=== PATIENT | female | born 1990 | race Two or more races ===

== ENCOUNTER 2020-11-13 08:37 | Day surgery (SDC) | payer OTHER | END 2020-11-13 16:45 | disposition home or self-care (01) | LOC: CIR.AMB 08:37 | PROVIDERS: ATTEND Obstetrics & Gynecology | DX: O02.1 Missed abortion (principal); Z20.822 Contact with and (suspected) exposure to COVID-19 ==

== ENCOUNTER 2021-09-18 09:55 | Outpatient (CLI) | payer OTHER | END 2021-09-18 10:07 | disposition home or self-care (01) | LOC: NST 09:55 | PROVIDERS: ATTEND Obstetrics & Gynecology | DX: Z34.83 Encounter for supervision of other normal pregnancy, third trimester (principal) ==

== ENCOUNTER 2021-10-30 10:30 | Inpatient (IN) | payer OTHER ==
[~2021-10-30] VITALS: Ht 167.6 cm; Wt 73.9 kg
[2021-11-15] MEDS ORDERED: PRENATAL CAPLE1 EAC1 PO (15:32)
== END 2021-11-17 13:47 | disposition home or self-care (01) | DRG 807 ==
LOC: LDR 11-08 10:30 → SURG-SUITE 11-15 10:16 → LDR 11-15 10:16 → SURG-SUITE 11-15 14:13
PROVIDERS: ADMIT Obstetrics & Gynecology; ATTEND Obstetrics & Gynecology
PROC: 10E0XZZ Delivery of Products of Conception, External Approach (ICD-10-PCS; principal; 2021-11-15)
PROC: 0HQ9XZZ Repair Perineum Skin, External Approach (ICD-10-PCS; 2021-11-15)
PROC: 4A1HXCZ Monitoring of Products of Conception, Cardiac Rate, External Approach (ICD-10-PCS; 2021-11-15)
DX: O70.0 First degree perineal laceration during delivery (principal); Z37.0 Single live birth; Z3A.40 40 weeks gestation of pregnancy; Z20.822 Contact with and (suspected) exposure to COVID-19

== ENCOUNTER 2021-11-11 09:31 | Outpatient (CLI) | payer OTHER | END 2021-11-11 10:23 | disposition home or self-care (01) | LOC: NST 09:31 | PROVIDERS: ATTEND Obstetrics & Gynecology | DX: Z34.83 Encounter for supervision of other normal pregnancy, third trimester (principal) ==

== ENCOUNTER 2021-11-13 10:06 | Outpatient (CLI) | payer OTHER | END 2021-11-13 10:58 | disposition home or self-care (01) | LOC: NST 10:06 | PROVIDERS: ATTEND Obstetrics & Gynecology | DX: Z34.83 Encounter for supervision of other normal pregnancy, third trimester (principal) ==

== ENCOUNTER 2023-03-07 12:29 | Inpatient (IN) | payer OTHER ==
[~2023-03-07] VITALS: Ht 172.7 cm; Wt 77.1 kg
[~2023-03-07 12:29] MED LIST: PRENATAL CAPLE1 EAC1 PO
== END 2023-03-10 13:19 | disposition home or self-care (01) | DRG 807 ==
LOC: LDR → OB/GYN 03-08 21:14
PROVIDERS: ADMIT Obstetrics & Gynecology; ATTEND Obstetrics & Gynecology
PROC: 10E0XZZ Delivery of Products of Conception, External Approach (ICD-10-PCS; principal; 2023-03-08)
PROC: 4A1HXCZ Monitoring of Products of Conception, Cardiac Rate, External Approach (ICD-10-PCS; 2023-03-08)
DX: O80 Encounter for full-term uncomplicated delivery (principal); Z37.0 Single live birth; Z3A.40 40 weeks gestation of pregnancy; Z20.822 Contact with and (suspected) exposure to COVID-19

== ENCOUNTER 2023-03-08 12:01 | Outpatient (CLI) | payer OTHER | END 2023-03-08 12:05 | disposition home or self-care (01) | LOC: NST 12:01 | PROVIDERS: ATTEND Obstetrics & Gynecology Gynecology | DX: Z34.83 Encounter for supervision of other normal pregnancy, third trimester (principal) ==